=== PATIENT | female | born 1975 | race African-American/Black ===

== ENCOUNTER 2017-07-27 05:46 | Inpatient (IN) ==
[2017-07-24 11:58] LABS: Basophils % 0.1 % (0.0-0.8); Eosinophils # 0.1 10*3/uL (0.0-0.87); Eosinophils % 1.3 % (0.00-10.9); Hematocrit 40.2 VOL% (35.7-47.0); Hemoglobin 12.9 GM/DL (12.0-16.0); Immature Granulocytes % 0.1 %; Immature Granulocytes Absolute 0.01 #; Lymphocytes # 2.3 10*3/uL (1.4-4.0); Lymphocytes % 29.6 % (21.3-54.2); Mean Corpuscular HGB Conc 32.1 GM/DL (32-36); Mean Corpuscular Hemoglobin 24 PG (27-34); Mean Corpuscular Volume 73.1 FL (87-102); Monocytes # 0.7 10*3/uL (0.11-0.8); Monocytes % 8.2 % (1.7-12.7); Neutrophils # 4.8 10*3/uL (1.4-7.4); Neutrophils % 60.7 % (38.7-73.9); Platelet Count 292 T/CUMM (130-400); Red Cell Distribution Width 15.6 % (9.3-17.3); White Blood Count 7.9 T/CUMM (4-12)
[2017-07-24 12:15] LABS: Apearance,Urine Slightly Hazy (Clear); Bacteria,Urine Few /HPF (Few); Bilirubin,Urine Negative (Negative); Blood, Urine Small mg/dL (Negative); Glucose,Urine (UA) Negative (Negative); Ketones,Urine Negative (Negative); Mucus,Urine Many /LPF (Occasional); Nitrite,Urine Negative (Negative); Protein,Urine Negative; RBC,Urine 13 /HPF (0-4); Squamous Epithelial Cell,Urine Occasional /HPF (0-10); Urine Color Yellow (Yellow); Urine Specific Gravity 1.018 (1.001-1.035); Urine Urobilinogen < 2.0 EU/DL (0.2-1.0); WBC,Urine 1 /HPF (0-6)
[2017-07-24 12:37] LABS: Albumin 3.6 G/DL (3.4-5.0); Bilirubin,Total 0.4 MG/DL (0.2-1.0); Calcium 8.5 MG/DL (8.5-10.1); Osmolality,Calculated 277.3 MOS/KG (273-304); Potassium 3.6 MMOL/L (3.5-5.1); Risk Ratio 3.65; Total Protein 7.8 G/DL (6.4-8.3); VLDL CHOLESTEROL 20.6 MG/DL
[2017-07-24 13:24] LABS: HIV Antigen/Antibody Result Nonreactive (Nonreactive)
[2017-07-27] MEDS ORDERED: AMPICILLIN/SULBACTAM 3,000 MG in SODIUM CHLORIDE 0.9% 100 ML IV ONE (06:30)
[2017-07-27] MEDS ORDERED: LACTATED RINGERS 1,000 ML IV SCH (07:00)
[2017-07-27 09:10] LABS: Apearance,Urine CLEAR (Clear); Bilirubin,Urine Negative (Negative); Blood, Urine Negative (Negative); Glucose,Urine (UA) Negative (Negative); Ketones,Urine Negative (Negative); Mucus,Urine Occasional /LPF (Occasional); Nitrite,Urine Negative (Negative); Protein,Urine Negative; RBC,Urine 1 /HPF (0-4); Squamous Epithelial Cell,Urine Occasional /HPF (0-10); Urine Color Yellow (Yellow); Urine Specific Gravity 1.012 (1.001-1.035); Urine Urobilinogen < 2.0 EU/DL (0.2-1.0); WBC,Urine 1 /HPF (0-6)
[2017-07-27] MEDS ORDERED: ROPIVACAINE 0.5% 30 ML VIAL ONE (09:20)
[2017-07-27] MEDS ORDERED: EPINEPHrine 1 MG/ML VIAL ONE (09:20)
[2017-07-27] MEDS ORDERED: PROPOFOL 200 MG/20 ML VIAL IV ONE (10:07)
[2017-07-27] MEDS ORDERED: fentaNYL 100 MCG/2 ML VIAL ONE ×2 (10:08→10:11)
[2017-07-27] MEDS ORDERED: MIDAZOLAM 2 MG/2 ML VIAL ONE (10:08)
[2017-07-27] MEDS ORDERED: DESFLURANE 1 UNIT/15 MINUTE INH ONE (10:08)
[2017-07-27] MEDS ORDERED: GLYCOPYRROLATE 0.4 MG/2 ML VIAL ONE (10:08)
[2017-07-27] MEDS ORDERED: ONDANSETRON 4 MG/2 ML VIAL ONE ×2 (10:08→10:29)
[2017-07-27] MEDS ORDERED: DEXAMETHASONE 10 MG/1 ML VIAL ONE (10:08)
[2017-07-27] MEDS ORDERED: ROCURONIUM 100 MG/10 ML VIAL IV ONE (10:09)
[2017-07-27] MEDS ORDERED: NEOSTIGMINE 10 MG/10 ML VIAL ONE (10:09)
[2017-07-27] MEDS ORDERED: ACETAMINOPHEN 1,000 MG/100 ML VIAL IV ONE (10:09)
[2017-07-27] MEDS ORDERED: ONDANSETRON 4 MG/2 ML VIAL IV PRN ×2 (10:28→10:56)
[2017-07-27] MEDS ORDERED: HYDROmorphone 2 MG/1 ML VIAL IV PRN (10:28)
[2017-07-27] MEDS ORDERED: ACETAMINOPHEN 325 MG TABLET PO PRN (10:56)
[2017-07-27] MEDS ORDERED: DOCUSATE SODIUM 100 MG CAPSULE PO PRN (10:56)
[2017-07-27] MEDS ORDERED: MAGNESIUM HYDROXIDE SUSP 30 ML UDCUP PO PRN (10:56)
[2017-07-27] MEDS ORDERED: IBUPROFEN 800 MG TABLET PO PRN (10:56)
[2017-07-27] MEDS ORDERED: BENZOCAINE/MENTHOL LOZENGE 18/BOX PO PRN (10:56)
[2017-07-27] MEDS ORDERED: BISACODYL 10 MG SUPP RECTAL PRN (10:56)
[2017-07-27] MEDS: LACTATED RINGERS 1,000 ML IV SCH ×2 (12:00→19:45)
[2017-07-27] MEDS: HYDROmorphone 2 MG/1 ML VIAL IV PRN ×3 (13:05→19:29)
[2017-07-27] MEDS: ceFAZolin 1,000 MG in SYRINGE 1 EACH IV SCH ×2 (16:43→23:43)
[2017-07-27] MEDS ORDERED: KETOROLAC 30 MG/1 ML VIAL IV PRN (23:29)
[2017-07-27] MEDS ORDERED: KETOROLAC 30 MG/1 ML VIAL IV ONE (23:31)
[2017-07-27] MEDS ORDERED: KETOROLAC 30 MG/1 ML VIAL ONE (23:32)
[2017-07-28] MEDS: LACTATED RINGERS 1,000 ML IV SCH (03:45)
[2017-07-28 07:21] LABS: Basophils % 0.1 % (0.0-0.8); Eosinophils % 0.1 % (0.00-10.9); Hematocrit 34.6 VOL% (35.7-47.0); Immature Granulocytes % 0.4 %; Immature Granulocytes Absolute 0.05 #; Lymphocytes # 2.3 10*3/uL (1.4-4.0); Lymphocytes % 18.3 % (21.3-54.2); Mean Corpuscular HGB Conc 31.8 GM/DL (32-36); Mean Corpuscular Hemoglobin 24 PG (27-34); Mean Corpuscular Volume 74.2 FL (87-102); Mean Platelet Volume 11.2 FL (9.6-12.0); Monocytes # 1.2 10*3/uL (0.11-0.8); Monocytes % 9.9 % (1.7-12.7); Neutrophils # 8.8 10*3/uL (1.4-7.4); Neutrophils % 71.2 % (38.7-73.9); Platelet Count 275 T/CUMM (130-400); Red Blood Count 4.66 MC/CUMM (3.8-5.5); Red Cell Distribution Width 15.3 % (9.3-17.3); White Blood Count 12.4 T/CUMM (4-12)
[2017-07-28] MEDS ORDERED: SIMETHICONE CHEW 80 MG TABLET PO PRN (20:20)
[2017-07-28] MEDS ORDERED: MAGNESIUM CITRATE 300 ML BOTTLE PO ONE (21:26)
[2017-07-29 11:08] VITALS: BP 113/70
== END 2017-07-29 13:40 | disposition home or self-care (01) | DRG 743 ==
LOC: N.OR 05:46 → N.SDSINP 05:48 → N.OB 09:37
PROVIDERS: ADMIT Obstetrics & Gynecology; ATTEND Obstetrics & Gynecology